=== PATIENT | female | born 1985 | race Caucasian/White ===

== ENCOUNTER 2018-11-08 08:10 | Emergency (ER) | payer OTHER ==
[~2018-11-08] VITALS: Ht 165.1 cm; Wt 140.6 kg
--- OUTSIDE RECORDS SUMMARY | 2018-11-08 08:12 | XMS REPORT | CCD ---
Author Author Auto Generated Organization [facility] Out[facility] - [place] Address Unknown Phone Unavailable Care Team Providers Care Wastewater Design Engineer Name Role Phone Mirella Ramos CP Allergies, Adverse Reactions, Alerts Substance Reaction Status NKDA Active
--- OUTSIDE RECORDS SUMMARY | 2018-11-08 08:12 | XMS REPORT | Encounter Summary ---
Author Organization Unknown Address [address] [place] [address] Phone [phone] Reason for Visit Medical Complaint Instructions 1. Viral upper respiratory tract infection Medrol (Eliu) 4 mg tablets in a dose pack 2. Cough cough: care instructions benzonatate 100 mg capsule 3. Body mass index 40+ - severely obese body mass index: care instructions Discussion Note explained to patient regarding viral vs bacterial infection. Encouraged adequate hydration and fluids. Discussed hand hygiene and CDC guidelines for viral infections. If new, worsening or persistance of symptoms follow up with PCP. If SOB, wheezing, fever, difficulty swallowing or abdominal pain go to ED. Pt verbalizes understanding and agrees with plan of care. May alternate Motrin and Tylenol for fever, pain or discomfort as needed per label instructions. Plan of Care Reminders Provider Appointments None recorded. Lab None recorded. Referral None recorded. Procedures None recorded. Surgeries None recorded. Imaging None recorded. Medications Name Start Date benzonatate 100 mg capsule Take 2 capsules 3 times a day by oral route as needed for 10 days. Medrol (Eliu) 4 mg tablets in a dose pack take as directed Medications Administered None recorded. Vitals Height Weight BMI Blood Pressure 5 ft 5 in 310 lbs 51.6 kg/m2 120/78 mm[Hg] Lab Results None recorded. Allergies Code Code System Name Reaction Severity Status Onset NKDA Problems Name Status Onset Date Source Body Mass Index 40+ - Severely Obese Active 07/27/2018 Procedures None recorded. Vaccine List None recorded. Social History Smoking Status Never Smoker Past Encounters 07/27/2018 Viral Upper Respiratory Tract Infection; Cough; Body Mass Index 40+ - Severely Obese Sonal Torre PA-C: [address] [place] [address], Ph. History of Present Illness Naqfc-Wmrjknozxm-Lfyxpea Reported By: Patient HPI: Location: head/sinuses. Quality: productive cough, colored phlegm, nasal/sinus congestion, hacking cough. Duration: 4days. Severity: mild. Onset/Timing: sudden. Context: no sick contacts, no foreign travel, non-smoker. Modifying factors: OTC medication. Associated Symptoms: no shortness of breath, no wheezing, no change in number of pillows needed to sleep at night, no sweats, no significant weight gain, no significant weight loss, no morning cough, no sore throat, no vomiting, no diarrhea, no rash, no nausea, no fever, yellow-green, thick sputum, muscle aches, headache Review of Systems Basic Reported By: Patient Constitutional: Constitutional: no fever Eyes: Eyes: no eye complaints Nvae-Amef-Szsut-Throat: Ears: no ear complaints. Nose: nose/sinus problems. Mouth/Throat: no sore throat, no bleeding gums, no mouth complaints, no teeth problems Cardiovascular: Cardiovascular: no chest pain, no shortness of breath, no known heart murmur Respiratory: Respiratory: no wheezing, cough, shortness of breath Gastrointestinal: Gastrointestinal: no abdominal pain, no vomiting / diarrhea Genitourinary: Genitourinary: no urinary complaints, no discharge Musculoskeletal: Musculoskeletal: no muscle aches, no muscle weakness, no arthralgias/joint pain, no back pain Skin: Skin: no abnormal / changing mole, no jaundice, no rashes Neurologic: Neurologic: no loss of consciousness, no weakness, no numbness, no seizures, no dizziness, no headaches, headache Physical Exam Adult Basic Reported By: Patient Constitutional: General Appearance: healthy-appearing, morbidly obese. Level of Distress: NAD. Ambulation: ambulating normally Psychiatric: Mental Status: active and alert. Orientation: to time, to place, to person Eyes: Lids and Conjunctivae: non-injected, no discharge, no pallor. Pupils: PERRLA. EOM: EOMI. Sclerae: non-icteric. Vision: acuity grossly intact Yto-Anlc-Gndve-Throat: Ears: no lesions on external ear, no outer ear tenderness, EACs clear, TMs clear. Hearing: no hearing loss. Nose: no lesions on external nose, nares patent, no septal deviation, nasal passages clear, no sinus tenderness, nasal discharge, nasal discharge--purulent, nasal discharge--rhinorrhea, post nasal drip. Lips, Teeth, and Gums: no mouth or lip ulcers, no bleeding gums, normal dentition. Oropharynx: moist mucous membranes, no erythema, no exudates, tonsils not enlarged; cobblestoning Neck: Neck: supple, trachea midline, no masses, FROM. Lymph Nodes: no cervical LAD, no supraclavicular LAD Lungs: Respiratory effort: no dyspnea, no tachypnea, no use of accessory muscles, no intercostal retractions. Auscultation: breath sounds normal Cardiovascular: Heart Auscultation: RRR, no murmurs
--- OUTSIDE RECORDS SUMMARY | 2018-11-08 08:12 | XMS REPORT | Encounter Summary ---
Author Organization Unknown Address [address] [place] [address] Phone [phone] Reason for Visit Medical Complaint Instructions 1. Viral upper respiratory tract infection fluticasone 50 mcg/actuation nasal spray,suspension benzonatate 200 mg capsule 2. Body mass index 40+ - severely obese body mass index: care instructions 3. Elevated blood-pressure reading without diagnosis of hypertension elevated blood pressure: care instructions Discussion Note Pt is in NAD; Verbalizes understanding of all instructions with no questions at this time. Plan of Care Patient Instructions Take tylenol over the counter for pain/headache/fever as per pacakge insert. Take benzonatate for cough as directed. Take fluticasone as needed for congestion. [place] one spray in each nostril twice a day. Take a warm, steamy shower, blow your nose thereafter, and spray in each nostril. Tilt your head up for about 10 seconds and breath through your mouth. Do not sniff or snort the medication in or else the medication will go to your throat and not be absorbed appropriately. Take medications as prescribed and follow up with a PCP within 2-3 if symptoms worsen as discussed. Recommend monitor BP at home and document, bring BP log to PCP for review. Recommend follow a low sodium/fat/carb diet and exercise 30-45 mins/d 3-4 days a week once symptoms resolve. Reminders Provider Appointments None recorded. Lab None recorded. Referral None recorded. Procedures None recorded. Surgeries None recorded. Imaging None recorded. Medications Name Start Date benzonatate 200 mg capsule Take 1 capsule 3 times a day by oral route as needed. fluticasone 50 mcg/actuation nasal spray,suspension [place] 2 sprays every day by intranasal route as needed. Medications Administered None recorded. Vitals Height Weight BMI Blood Pressure 5 ft 5 in 310 lbs 51.6 kg/m2 (1) 128/84 mm[Hg] (2) 122/85 mm[Hg] Lab Results None recorded. Allergies Code Code System Name Reaction Severity Status Onset Influenza Virus Vaccine, Specific Other Active Problems Name Status Onset Date Source Body Mass Index 40+ - Severely Obese Active 07/27/2018 Polycystic Ovaries Active 10/12/2018 Elevated Blood-pressure Reading without Diagnosis of Hypertension Active 10/12/2018 Procedures None recorded. Vaccine List None recorded. Social History Smoking Status Never Smoker Past Encounters 10/12/2018 Viral Upper Respiratory Tract Infection; Body Mass Index 40+ - Severely Obese; Elevated Blood-pressure Reading without Diagnosis of Hypertension Letitia Oneal, [facility]-C: [address] [place] [address], Ph. History of Present Illness Ptaygmo-Obhse-Rte Reported By: Patient HPI: Quality: symptoms worse during the day. Duration: constant; nasal congestion, rhinorrhea, post nasal drip, B/L ear pressure and chest congestion x 3 days and productive cough since this morning. Severity: subjective temperature. Context: no ill contacts, no tick/insect bites, no recent travel, no new medications. Associated Symptoms: no fever/chills, no headache, no muscle aches, no rash, no lethargy, cold symptoms, cough, nasal passage blockage (stuffiness); post nasal drip, B/L ear pressure and chest congestion. Modifying Factors ; has not taken anything Review of Systems:ROS as noted in the HPI Review of Systems Basic Reported By: Patient Physical Exam Adult Basic, Adult Female Complete Reported By: Patient Constitutional: General Appearance: healthy-appearing, morbidly obese. Level of Distress: NAD. Ambulation: ambulating normally Psychiatric: Mental Status: active and alert. Orientation: to time, to place, to person Eyes: Lids and Conjunctivae: non-injected, no discharge, no pallor. Corneas: grossly intact. EOM: EOMI Xjd-Lnrg-Mabfe-Throat: Ears: no lesions on external ear, no outer ear tenderness, EACs clear, TMs clear. Hearing: no hearing loss. Nose: no lesions on external nose, nares patent, no septal deviation, nasal passages clear, no sinus tenderness, nasal discharge--rhinorrhea, post nasal drip; B/L NTs pink and edematous. Lips, Teeth, and Gums: no mouth or lip ulcers, no bleeding gums, normal dentition. Oropharynx: moist mucous membranes, no erythema, no exudates, tonsils not enlarged Neck: Neck: supple. Lymph Nodes: no cervical LAD Lungs: Respiratory effort: no dyspnea, no tachypnea, no use of accessory muscles, no intercostal retractions. Auscultation: breath sounds normal Cardiovascular: Heart Auscultation: RRR, no murmurs Neurologic: Gait and Station: normal gait, normal station. Cranial Nerves: grossly intact
--- OUTSIDE RECORDS SUMMARY | 2018-11-08 08:12 | XMS REPORT | CCD ---
Author Author Auto Generated Organization [facility] Outpatient [facility] - [place] Address Unknown Phone Unavailable Care Team Providers Care Rock Lather Name Role Phone Padmini Jones CP Allergies, Adverse Reactions, Alerts Substance Reaction Status NKDA Active
--- OUTSIDE RECORDS SUMMARY | 2018-11-08 08:12 | XMS REPORT | Continuity of Care Document ---
Author Author [facility] Address Unknown Phone Unavailable Problems Problem Status Onset Date Classification Date Reported Comments Source Viral upper respiratory tract infection 10/12/2018 Diagnosis 10/12/2018 [facility] Elevated blood-pressure reading without diagnosis of hypertension 10/12/2018 Diagnosis 10/12/2018 [facility] Body mass index 40+ - severely obese 10/12/2018 Diagnosis 10/12/2018 [facility] Polycystic Ovaries 10/12/2018 Problem 10/12/2018 [facility] Elevated Blood-pressure Reading without Diagnosis of Hypertension 10/12/2018 Problem 10/12/2018 [facility] Cough 07/27/2018 Diagnosis 07/27/2018 [facility] Body Mass Index 40+ - Severely Obese 07/27/2018 Problem 10/12/2018 [facility] 714.9 - INFLAMM POLYART Active 01/18/2013 [facility] [place] Medications Medication Details Route Status Patient Instructions Ordering Provider Order Date Source benzonatate 100 MG Oral Capsule benzonatate 100 mg capsule Take 2 capsules 3 times a day by oral route as needed for 10 days. Active [facility] Medrol (Eliu) 4 mg tablets in a dose pack Medrol (Eliu) 4 mg tablets in a dose pack take as directed Active [facility] benzonatate 200 MG Oral Capsule benzonatate 200 mg capsule Take 1 capsule 3 times a day by oral route as needed. Active [facility] Fluticasone propionate 0.05 MG/ACTUAT Metered Dose Nasal [place] fluticasone 50 mcg/actuation nasal spray,suspension [place] 2 sprays every day by intranasal route as needed. Active [facility] Allergies, Adverse Reactions, Alerts Substance Category Reaction Severity Reaction type Status Date Reported Comments Source Influenza Virus Vaccine, Specific Other Allergy to substance 10/12/2018 [facility] Immunizations Immunization Date Given Site Status Last Updated Comments Source Results Order Name Results Value Reference Range Date Interpretation Comments Source Vital Signs Vital Sign Value Date Comments Source Diastolic (mm Hg) 85 10/12/2018 [facility] Height 65 10/12/2018 [facility] Systolic (mm Hg) 122 10/12/2018 [facility] Weight 310 10/12/2018 [facility] Diastolic (mm Hg) 78 07/27/2018 [facility] Height 65 07/27/2018 [facility] Systolic (mm Hg) 120 07/27/2018 [facility] Weight 310 07/27/2018 [facility] Encounters Location Location Details Encounter Type Encounter Number Reason For Visit Attending Provider ADM Date DC Date Status Source [id number] 714.9 - INFLAMM BENTLEYHEATH JOSHI ANUJA 01/18/2013 Active [facility] [place] - [facility] - [id number] HollowayC: [address] [place] [address], Ph. [id number] Sonal Torre 07/27/2018 [facility] [place] - [facility] - [id number] Saxena-C: [address] [place] [address], Ph. [id number] Letitia Oneal 10/12/2018 [facility] Procedures Procedure Code Date Perfomer Comments Source
[2018-11-08 08:50] LABS: COLOR,URINE YELLOW (YELLOW)
[2018-11-08 08:51] LABS: BILIRUBIN,URINE NEGATIVE (NEGATIVE); CLARITY,URINE HAZY (CLEAR); KETONES,URINE NEGATIVE (NEGATIVE); LEUKOCYTE ESTERASE ,URINE NEGATIVE (NEGATIVE); NITRITE,URINE NEGATIVE (NEGATIVE); PREGNANCY TEST, URINE NEGATIVE (NEGATIVE); PROTEIN,URINE DIPSTICK NEGATIVE (NEGATIVE); URINE UROBILINOGEN 0.2 mg/dL (0.2 - 1)
[2018-11-08 09:08] LABS: BACTERIA,URINE MODERATE /HPF; EPITHELIAL CELLS,URINE MODERATE /LPF; RBC,URINE 0-5 /HPF (0-5); WBC,URINE (MAN) 0-5 /HPF (0-5)
--- NOTE | 2018-11-08 09:11 | NUR ---
DR. CASAS EVALUATING PT IN [place].
[2018-11-08] MEDS ORDERED: SODIUM CHLORIDE 0.9% 1000ML 1,000 ML IV STA (09:17)
[2018-11-08 09:45] LABS: BASOPHILS # (AUTO) 0.1 (0.0-0.1); BASOPHILS % 1.1 % (0.0-1.0); EOSINOPHILS # (AUTO) 0.4 (0.0-0.4); EOSINOPHILS % 6.2 % (0.0-6.0); HEMATOCRIT 43.2 % (34.2-44.1); HEMOGLOBIN 14.8 g/dL (12.0-16.0); MEAN CORPUSCULAR HEMOGLOBIN 29.8 pg (28-32); MEAN CORPUSCULAR HGB CONC 34.3 g/dL (31-35); MEAN CORPUSCULAR VOLUME 86.9 fL (81-99); MONOCYTES # (AUTO) 0.5 (0.2-0.8); MONOCYTES % 8.1 % (4.4-11.3); NEUTROPHILS # (AUTO) 3.4 (2.1-6.9); NEUTROPHILS % 53.4 % (38.7-80.0); PLATELET COUNT 343 x10e3/uL (140-360); RED BLOOD COUNT 4.97 x10e6/uL (3.6-5.1); RED CELL DISTRIBUTION WIDTH 12.4 % (11.7-14.4)
[2018-11-08 09:58] LABS: ALANINE AMINOTRANSFERASE 209 IU/L (0-55); ALBUMIN 4.2 g/dL (3.5-5.0); ALBUMIN/GLOBULIN RATIO 1.2 (0.8-2.0); ALKALINE PHOSPHATASE 49 IU/L (40-150); BLOOD UREA NITROGEN 8 mg/dL (7-26); BUN/CREATININE RATIO 11 (6-25); CALCIUM 9.7 mg/dL (8.4-10.2); CARBON DIOXIDE 25 mmol/L (22-29); CHLORIDE 103 mmol/L (98-107); CREATINE KINASE 57 IU/L (29-168); CREATININE, SERUM 0.72 mg/dL (0.57-1.11); EST GLOMERULAR FILTRATION RATE > 60 ML/MIN (60-); GLUCOSE 103 mg/dL (74-118); SODIUM 138 mmol/L (136-145)
[2018-11-08 10:50] VITALS: BP 150/104
== END 2018-11-08 10:50 | disposition home or self-care (01) ==
LOC: ER 08:10
DX: N30.91 Cystitis, unspecified with hematuria (principal); B17.9 Acute viral hepatitis, unspecified; E28.2 Polycystic ovarian syndrome
CPT/HCPCS: 36415; 80053; 81001; 81025; 82550; 82553; 84484; 85025; 99283; J7030

== ENCOUNTER 2019-05-13 08:16 | Emergency (ER) | payer OTHER ==
[~2019-05-13] VITALS: Ht 165.1 cm; Wt 140.6 kg
--- OUTSIDE RECORDS SUMMARY | 2019-05-13 08:18 | XMS REPORT | Continuity of Care Document ---
Author Author [employer] Address Unknown Phone Unavailable Care Team Providers Care Rod Tape Operator Name Role Phone [employer] Unavailable Unavailable Problems Problem Status Onset Date Classification [...] 714.9 - INFLAMM POLYART Active 01/18/2013 [facility] [place] Medications Medication Details Route Status Patient Instructions [...] Fluticasone propionate 0.05 MG/ACTUAT Metered Dose Nasal [place] fluticasone 50 mcg/actuation nasal spray,suspension [place] 2 sprays every day by intranasal route as needed. Active [facility] Allergies, Adverse Reactions, Alerts Substance Category Reaction Severity Reaction type Status Date Reported Comments Source Influenza Virus Vaccine, Specific Other Allergy to substance 10/12/2018 [facility] Immunizations No Data Provided for This Section Results No Data Provided for This Section Pathology Reports No Data Provided for This Section Diagnostic Reports No Data Provided for This Section Consultation Notes No Data Provided for This Section Discharge Summaries No Data Provided for This Section History and Physicals No Data Provided for This Section Vital Signs Vital Sign Value Date Comments [...] Provider ADM Date DC Date Status Source OD [id number] 714.9 - INFLAMM BENTLEYHEATH JOSHI LICEA 01/18/2013 Active [facility] [place] - [facility] - [id number] Trore PA-C: [address] [place] [address], Ph. [id number] Sonal Torre 07/27/2018 [facility] [place] - [facility] - [id number] SaxenaP-C: [address] [place] [address], Ph. [id number] Letitia Oneal 10/12/2018 [facility] Procedures No Data Provided for This Section Assessment and Plan No Data Provided for This Section Plan of Care No Data Provided for This Section Social History Social History Date Source Smoking Status Never Smoker 07/27/2018 [facility] Family History No Data Provided for This Section Advance Directives No Data Provided for This Section Functional Status No Data Provided for This Section
[2019-05-13 08:53] LABS: BILIRUBIN,URINE NEGATIVE (NEGATIVE); CLARITY,URINE CLOUDY (CLEAR); COLOR,URINE YELLOW (YELLOW); KETONES,URINE NEGATIVE (NEGATIVE); LEUKOCYTE ESTERASE ,URINE NEGATIVE (NEGATIVE); NITRITE,URINE NEGATIVE (NEGATIVE); PROTEIN,URINE DIPSTICK NEGATIVE (NEGATIVE); URINE UROBILINOGEN 0.2 mg/dL (0.2 - 1)
[2019-05-13 08:54] LABS: PREGNANCY TEST, URINE NEGATIVE (NEGATIVE)
[2019-05-13 09:05] LABS: BASOPHILS # (AUTO) 0.1 (0.0-0.1); BASOPHILS % 0.8 % (0.0-1.0); EOSINOPHILS # (AUTO) 0.3 (0.0-0.4); HEMATOCRIT 42.4 % (34.2-44.1); HEMOGLOBIN 14.8 g/dL (12.0-16.0); LYMPHOCYTES # (AUTO) 1.1 (1.0-3.2); LYMPHOCYTES % 17.2 % (18.0-39.1); MEAN CORPUSCULAR HGB CONC 34.9 g/dL (31-35); MEAN CORPUSCULAR VOLUME 85.8 fL (81-99); MONOCYTES # (AUTO) 0.7 (0.2-0.8); NEUTROPHILS # (AUTO) 4.1 (2.1-6.9); NEUTROPHILS % 65.7 % (38.7-80.0); PLATELET COUNT 305 x10e3/uL (140-360); RED BLOOD COUNT 4.94 x10e6/uL (3.6-5.1); RED CELL DISTRIBUTION WIDTH 12.4 % (11.7-14.4)
[2019-05-13 09:23] LABS: WBC,URINE (MAN) 0-5 /HPF (0-5)
[2019-05-13 09:24] LABS: BACTERIA,URINE MODERATE /HPF; EPITHELIAL CELLS,URINE MODERATE /LPF; RBC,URINE 0-5 /HPF (0-5)
[2019-05-13 09:25] LABS: CALCIUM OXALATE CRYSTALS,UR MODERATE (FEW)
[2019-05-13 09:31] LABS: ALANINE AMINOTRANSFERASE 173 IU/L (0-55); ALBUMIN 4.1 g/dL (3.5-5.0); ALBUMIN/GLOBULIN RATIO 1.2 (0.8-2.0); ALKALINE PHOSPHATASE 51 IU/L (40-150); BLOOD UREA NITROGEN 10 mg/dL (7-26); BUN/CREATININE RATIO 13 (6-25); CALCIUM 9.7 mg/dL (8.4-10.2); CARBON DIOXIDE 25 mmol/L (22-29); CHLORIDE 104 mmol/L (98-107); CREATININE, SERUM 0.77 mg/dL (0.57-1.11); EST GLOMERULAR FILTRATION RATE > 60 ML/MIN (60-); GLUCOSE 108 mg/dL (74-118); SODIUM 139 mmol/L (136-145)
--- NOTE | 2019-05-13 10:42 | Diagnostic Imaging Report ---
PROCEDURE:US GALLBLADDER COMPARISON:None. INDICATIONS:RUQ TENDERNESS TECHNIQUE: Pierre-scale and color doppler transverse and longitudinal images of the right upper quadrant of the abdomen were obtained. FINDINGS: Liver: 18 cm in length in the right midclavicular line. Diffusely increased hepatic parenchymal echogenecity. No focal mass. No intrahepatic biliary dilatation. Main portal vein: 1.2 cm in caliber, patent with hepatopetal flow. Gallbladder: Normal in appearance; no echogenic sludge, shadowing calculus, wall thickening, or pericholecystic fluid. Common Bile Duct: 0.2 cm in caliber. Sonographic Johnson's sign: Negative Right kidney: 12.4 cm. Normal echogenicity. No solid masses or hydronephrosis. Pancreas: The visualized portions are unremarkable. Inferior vena cava: Patent Aorta: Nonaneurysmal Ascites: None in the right upper quadrant of the abdomen. CONCLUSION: Hepatomegaly with increased echogenicity compatible with steatosis. Unremarkable sonographic appearance of the gallbladder. Dictated by: Praveen Jalloh M.D. on 05/13/2019 at 10:46 Electronically approved by: Praveen Jalloh M.D. on 05/13/2019 at 10:46
[2019-05-13] MEDS: KETOROLAC TROMETHAMINE 30 MG/ML VIAL IV STA (10:48)
[2019-05-13] MEDS: ONDANSETRON HCL INJ 2MG/ML 2ML 2 MG/ML VIAL IV STA (10:48)
[2019-05-13] MEDS: SODIUM CHLORIDE 0.9% 1000ML 1,000 ML IV ONE (10:48)
[2019-05-13] MEDS: FAMOTIDINE 20 MG/2 ML VIAL IV STA (10:48)
[2019-05-13] MEDS ORDERED: PEPCID20 MG PO (11:42)
== END 2019-05-13 12:39 | disposition home or self-care (01) ==
LOC: ER 08:16
DX: R10.13 Epigastric pain (principal); R11.0 Nausea; K75.4 Autoimmune hepatitis
CPT/HCPCS: 36415; 76705; 80053; 81001; 81025; 85025; 99283; J1885; J2405; J7030